=== PATIENT | female | born 1975 | race Caucasian/White ===

== ENCOUNTER → 2019-07-19 | Outpatient (CLI) | payer OTHER ==
--- NOTE | 2019-07-24 15:27 | MR ---
EXAMINATION TYPE: MR brain wo/w con DATE OF EXAM: 07/19/2019 COMPARISON: Prior MRI from outside institution 01/09/2019 HISTORY: Seizures TECHNIQUE: Multiplanar, multisequence images of the brain and brainstem is performed without and with IV contras t, utilizing 6.5 mL intravenous Gadavist . FINDINGS: Diffusion weighted images demonstrate no evidence of a recent infarct or other diffusion ab normality. There is no extra-axial fluid collection or significant white matter signal abnormality. The ventricular system and cisternal spaces are normal in size and appearance. The brain volume is age appropriate. Midline structures demonstrate normal morphology. The craniocervical junction appears within normal limits. Post contrast images demonstrate no abnormal enhancement. The dural venous sinuses appear pa tent. The visualized sinuses are clear and the globes are intact. IMPRESSION: Stable brain MRI, no acute abnormality. No evident metastasis.
== END | disposition home or self-care (01) ==
LOC: RADMRIMAIN 15:52
PROVIDERS: ATTEND Family Medicine
DX: G40.89 Other seizures (principal)
CPT/HCPCS: 70553; A9585

== ENCOUNTER → 2021-05-27 | Outpatient (CLI) | payer OTHER ==
[2021-05-27 14:31] LABS: Basophils # (A) 0.04 X 10*3/uL (0.00-0.10); Basophils % (A) 0.7 %; Eosinophils # (A) 0.07 X 10*3/uL (0.04-0.35); Eosinophils % (A) 1.3 %; HCT 40.4 % (37.2-46.3); HGB 13.1 g/dL (12.0-15.0); Immature Grans, Automated 0.4 %; Lymphocytes # (A) 2.33 X 10*3/uL (0.90-5.00); MCH 32.4 pg (27.0-32.0); MCHC 32.4 g/dL (32.0-37.0); Mean Platelet Volume 10.3 fL (9.5-12.2); Monocytes # (A) 0.32 X 10*3/uL (0.20-1.00); Monocytes % (A) 5.9 %; NRBC Per 100 WBC 0 /100 WBCS (0.0-0.0); Neutrophils # (A) 2.64 X 10*3/uL (1.80-7.70); Neutrophils % (A) 48.7 %; Platelet Count 256 X 10*3/uL (140-440); RBC 4.04 X 10*6/uL (4.10-5.20); RDW 12.4 % (11.5-14.5); WBC 5.42 X 10*3/uL (4.50-10.00)
== END | disposition home or self-care (01) ==
LOC: LABPAT 08:27
PROVIDERS: ATTEND Obstetrics & Gynecology
DX: Z01.812 Encounter for preprocedural laboratory examination (principal); N87.1 Moderate cervical dysplasia
CPT/HCPCS: 36415; 85025

== ENCOUNTER 2021-06-04 06:51 | Day surgery (SDC) | payer OTHER ==
[2021-06-02 14:35] VITALS: BMI 22.8
[~2021-06-04 06:51] MED LIST: DEXAMETHASONE SOD PHOSPHATE 4 MG/ML 1 ML VIAL IV ONE; LACTATED RINGERS 1,000 ML IV SCH; ONDANSETRON 4 MG/2 ML VIAL IVP ONE; Pre Op ABX Message 1 EACH MISC MISCELLANE ONE
[2021-06-04] MEDS ORDERED: HYDROmorphone 0.5 MG/0.5 ML SYRINGE IVP PRN (07:00)
[2021-06-04] MEDS ORDERED: KETOROLAC 15 MG/ML 1 ML VIAL ONE (08:14)
[2021-06-04] MEDS ORDERED: LIDOCAINE 1% INJ 10MG/ML (20 ML MDV) ONE (08:14)
[2021-06-04] MEDS ORDERED: MIDAZOLAM 2 MG/2 ML VIAL ONE (08:14)
[2021-06-04] MEDS ORDERED: fentaNYL (PF) 50 MCG/ML 2 ML AMP ONE (08:14)
[2021-06-04] MEDS ORDERED: PROPOFOL 10 MG/ML 20 ML VIAL IV ONE (08:14)
[2021-06-04] MEDS ORDERED: IODINE/POTASS IOD (LUGOLS) BOTTLE TOPICAL ONE (08:34)
[2021-06-04] MEDS ORDERED: FERRIC SUBSULFATE (MONSELS) JAR TOPICAL ONE (08:44)
[2021-06-04 09:03] VITALS: TEMP 96.9
[2021-06-04] MEDS ORDERED: ONDANSETRON 4 MG/2 ML VIAL IVP PRN (09:15)
[2021-06-04] MEDS ORDERED: KETOROLAC 15 MG/ML 1 ML VIAL IVP PRN (09:15)
[2021-06-04] MEDS ORDERED: IBUPROFEN 600 MG TAB PO PRN (09:15)
[2021-06-04] MEDS ORDERED: SIMETHICONE 80 MG CHEWABLE PO PRN (09:15)
[2021-06-04] MEDS ORDERED: diphenhydrAMINE 50 MG/ML 1 ML VIAL IVP PRN (09:15)
[2021-06-04] MEDS ORDERED: METOCLOPRAMIDE 5 MG/ML 2 ML VIAL IVP PRN (09:15)
[2021-06-04] MEDS ORDERED: LACTATED RINGERS 1,000 ML IV SCH (09:15)
[2021-06-04] MEDS ORDERED: Acetaminophen-Codeine 300-30mg TAB PO PRN ×2 (09:15)
--- NOTE | 2021-06-04 09:22 | P.OP ---
Date of Procedure: 06/04/21 Preoperative Diagnosis: #1. Ectocervical and endocervical RAMAN-2 Postoperative Diagnosis: Same Procedure(s) Performed: #1. Cold knife cervical conization Anesthesia: other (Gen. by facemask) Surgeon: Tomy Toscano Estimated Blood Loss (ml): 20 IV fluids (ml): 400 Urine output (ml): 50 Pathology: other (Cervical cone) Condition: stable Disposition: PACU Operative Findings: Intraoperatively, the cervix was noted to have all of the nonstaining tissue on the posterior lip between approximate 4:00 and 7:00. The cone incorporated all of the nonstaining cervix. The cone was taken to a depth of approximately 2 cm and, from the ectocervical perspective, was approximately 1 x 1 cm. Description of Procedure: The patient was prepped and draped in usual fashion after general anesthesia was administered by the anesthesiologist. The bladder was drained of approximately 50 mL of clear delfino urine. A weighted speculum was placed in the anterior lip of the cervix grasped with a single-tooth tenaculum allowing placement of cervical stay sutures using 0 Vicryl from 10:00 to 8:00 at the cervicovaginal junction and 2:00 to 4:00 the cervicovaginal junction. Each was tied off firmly and then held for traction. The uterus was sounded to approximately 6-7 cm. The cervix was stained with Lugol strong iodine and the entire cervix took up the dye without difficulty except for the posterior lip from approximately 4:00 to 7:00. The sound was deemed unnecessary. An 11 blade scalpel was utilized to begin the cone encompassing the entirety of the ectocervix to include the nonstaining area on the posterior lip. She was taken to a depth of approximately 2 cm or the length of the scalpel blade. The cone was then grasped with an Allis clamp and traction applied allowing it to be amputated at its base and passed for pathological diagnoses. Ball cautery was then utilized to create hemostasis from the base of the cone to the ectocervix. Once hemostasis was reasonably good, Monsel solution was applied. Small points of bleeding were then further made hemostatic with the cautery until hemostasis was deemed adequate. There was minimal ongoing bleeding from the cervix at any site. The margins in all been thoroughly cauterized. The cervical stay sutures were left in place but trimmed short bilaterally in the procedure discontinued. All instrumentation was removed. Estimated blood loss for the case was 20 mL or less. There were no complications. All sponge, instrument, and needle counts were correct. The patient tolerated the procedure well and proceeded to the recovery room in stable condition.
[2021-06-04 09:36] VITALS: RESP 18
[2021-06-04 09:56] VITALS: BP 125/85; PULSE 78
== END 2021-06-04 10:05 | disposition home or self-care (01) ==
LOC: OR 06:51
PROVIDERS: ATTEND Obstetrics & Gynecology
DX: N87.1 Moderate cervical dysplasia (principal); N72 Inflammatory disease of cervix uteri; E78.5 Hyperlipidemia, unspecified; F32.A Depression, unspecified; R56.9 Unspecified convulsions; K21.9 Gastro-esophageal reflux disease without esophagitis; Z85.828 Personal history of other malignant neoplasm of skin; Z85.3 Personal history of malignant neoplasm of breast; Z85.79 Personal history of other malignant neoplasms of lymphoid, hematopoietic and related tissues; Z92.21 Personal history of antineoplastic chemotherapy; Z90.13 Acquired absence of bilateral breasts and nipples; Z98.890 Other specified postprocedural states; Z79.899 Other long term (current) drug therapy; Z80.42 Family history of malignant neoplasm of prostate; Z80.9 Family history of malignant neoplasm, unspecified; Z80.8 Family history of malignant neoplasm of other organs or systems
CPT/HCPCS: 81025; 88307; 57520; J2250; J1100; J2405; J2001; J3010; J1885; J2704; J1170

== ENCOUNTER 2021-10-20 08:14 | Emergency (ER) | payer OTHER ==
[2021-10-20 08:59] VITALS: BP 130/79; PULSE 61; RESP 20; TEMP 98.4
--- NOTE | 2021-10-20 09:15 | ED ---
General Adult HPI - General Chief complaint: Abdominal Pain Stated complaint: Abd pain Time Seen by Provider: 10/20/21 09:03 Source: patient, RN notes reviewed, old records reviewed Mode of arrival: ambulatory Limitations: no limitations - History of Present Illness Initial comments: 46-year-old female presenting for evaluation of lower abdominal pain. Pain is been present for the past one month. She was treated for urinary tract infection at the onset. She does report urinary frequency but she states she drinks a lot of water. No urgency. No dysuria. No fever. No vomiting. Normal bowel movements. She had a colonoscopy 2 months ago which she reports is normal. She has a previous history of breast cancer. - Related Data Home Medications Medication Instructions Recorded Confirmed Anastrozole [Arimidex] 1 mg PO DAILY 06/02/21 06/04/21 Allergies Allergy/AdvReac Type Severity Reaction Status Date / Time No Known Allergies Allergy Verified 10/20/21 08:58 Review of Systems ROS Statement: Those systems with pertinent positive or pertinent negative responses have been documented in the HPI. ROS Other: All systems not noted in ROS Statement are negative. Past Medical History Past Medical History: Cancer, Seizure Disorder Additional Past Medical History / Comment(s): breast CA 2016 Past Surgical History: Breast Surgery Additional Past Surgical History / Comment(s): cervical/ovarian sx Smoking Status: Never smoker Past Alcohol Use History: Occasional Past Drug Use History: None Reported General Exam Limitations: no limitations General appearance: alert, in no apparent distress Head exam: Present: atraumatic, normocephalic Eye exam: Present: normal appearance, PERRL ENT exam: Present: normal exam Neck exam: Present: normal inspection. Absent: tenderness, meningismus Respiratory exam: Present: normal lung sounds bilaterally. Absent: respiratory distress, wheezes Cardiovascular Exam: Present: regular rate, normal rhythm GI/Abdominal exam: Present: soft. Absent: distended, tenderness Extremities exam: Present: normal inspection, normal capillary refill. Absent: pedal edema Neurological exam: Present: alert, oriented X3, CN II-XII intact, normal gait. Absent: motor sensory deficit Skin exam: Present: warm, dry, intact. Absent: cyanosis, diaphoretic Course Vital Signs 10/20/21 08:54 Temperature 98.4 F Pulse Rate 61 Respiratory 20 Rate Blood Pressure 130/79 O2 Sat by Pulse 99 Oximetry Medical Decision Making - Medical Decision Making 46-year-old female with one month of lower abdominal pain no bowel symptoms, no vaginal bleeding, no dysuria. Laboratory testing is unremarkable. I did perform CT imaging at the request of the primary care provider which shows a cystic mass 5 cm x 4.7 cm with a fluid-filled Center at the lower uterine segment and cervical junction. This is off of a preliminary radiology report. The complete report is unavailable due to technical difficulties. Patient is informed of both the mass and a limited radiology report. She will follow-up with her primary care physician regarding the complete interpretation of CT imaging and with her manipulative therapy specialist Dr. Toscano. She is informed to make an appointment as soon as possible regarding this cystic mass. - Lab Data Result diagrams: 10/20/21 09:32 10/20/21 09:32 Lab Results 10/20/21 10/20/21 10/20/21 Range/Units 09:32 09:32 09:32 WBC 5.1 (3.8-10.6) k/uL RBC 4.01 (3.80-5.40) m/uL Hgb 13.0 (11.4-16.0) gm/dL Hct 40.5 (34.0-46.0) % MCV 100.9 H (80.0-100.0) fL MCH 32.4 (25.0-35.0) pg MCHC 32.1 (31.0-37.0) g/dL RDW 12.0 (11.5-15.5) % Plt Count 292 (150-450) k/uL MPV 7.1 Neutrophils % 53 % Lymphocytes % 37 % Monocytes % 5 % Eosinophils % 2 % Basophils % 1 % Neutrophils # 2.7 (1.3-7.7) k/uL Lymphocytes # 1.9 (1.0-4.8) k/uL Monocytes # 0.3 (0-1.0) k/uL Eosinophils # 0.1 (0-0.7) k/uL Basophils # 0.0 (0-0.2) k/uL PT 10.2 (9.0-12.0) sec INR 0.9 (<1.2) APTT 24.7 (22.0-30.0) sec Sodium (137-145) mmol/L Potassium (3.5-5.1) mmol/L Chloride (98-107) mmol/L Carbon Dioxide (22-30) mmol/L Anion Gap mmol/L BUN (7-17) mg/dL Creatinine (0.52-1.04) mg/dL Est GFR (CKD-EPI)AfAm (>60 ml/min/1.73 sqM) Est GFR (CKD-EPI)NonAf (>60 ml/min/1.73 sqM) Glucose (74-99) mg/dL Calcium (8.4-10.2) mg/dL Total Bilirubin (0.2-1.3) mg/dL AST (14-36) U/L ALT (4-34) U/L Alkaline Phosphatase (38-126) U/L Total Protein (6.3-8.2) g/dL Albumin (3.5-5.0) g/dL Lipase (23-300) U/L Urine Color Light Yellow Urine Appearance Cloudy H (Clear) Urine pH 7.0 (5.0-8.0) Ur Specific Alvarado 1.002 (1.001-1.035) Urine Protein Negative (Negative) Urine Glucose (UA) Negative (Negative) Urine Ketones Negative (Negative) Urine Blood Negative (Negative) Urine Nitrite Negative (Negative) Urine Bilirubin Negative (Negative) Urine Urobilinogen <2.0 (<2.0) mg/dL Ur Leukocyte Esterase Negative (Negative) Urine RBC 1 (0-5) /hpf Urine WBC 2 (0-5) /hpf Ur Squamous Epith Cells 8 H (0-4) /hpf Amorphous Sediment Rare H (None) /hpf Urine Bacteria Occasional H (None) /hpf 10/20/21 Range/Units 09:32 WBC (3.8-10.6) k/uL RBC (3.80-5.40) m/uL Hgb (11.4-16.0) gm/dL Hct (34.0-46.0) % MCV (80.0-100.0) fL MCH (25.0-35.0) pg MCHC (31.0-37.0) g/dL RDW (11.5-15.5) % Plt Count (150-450) k/uL MPV Neutrophils % % Lymphocytes % % Monocytes % % Eosinophils % % Basophils % % Neutrophils # (1.3-7.7) k/uL Lymphocytes # (1.0-4.8) k/uL Monocytes # (0-1.0) k/uL Eosinophils # (0-0.7) k/uL Basophils # (0-0.2) k/uL PT (9.0-12.0) sec INR (<1.2) APTT (22.0-30.0) sec Sodium 138 (137-145) mmol/L Potassium 4.5 (3.5-5.1) mmol/L Chloride 103 (98-107) mmol/L Carbon Dioxide 25 (22-30) mmol/L Anion Gap 10 mmol/L BUN 9 (7-17) mg/dL Creatinine 0.77 (0.52-1.04) mg/dL Est GFR (CKD-EPI)AfAm >90 (>60 ml/min/1.73 sqM) Est GFR (CKD-EPI)NonAf >90 (>60 ml/min/1.73 sqM) Glucose 84 (74-99) mg/dL Calcium 10.1 (8.4-10.2) mg/dL Total Bilirubin 0.7 (0.2-1.3) mg/dL AST 28 (14-36) U/L ALT 16 (4-34) U/L Alkaline Phosphatase 68 (38-126) U/L Total Protein 7.3 (6.3-8.2) g/dL Albumin 4.4 (3.5-5.0) g/dL Lipase 152 (23-300) U/L Urine Color Urine Appearance (Clear) Urine pH (5.0-8.0) Ur Specific Alvarado (1.001-1.035) Urine Protein (Negative) Urine Glucose (UA) (Negative) Urine Ketones (Negative) Urine Blood (Negative) Urine Nitrite (Negative) Urine Bilirubin (Negative) Urine Urobilinogen (<2.0) mg/dL Ur Leukocyte Esterase (Negative) Urine RBC (0-5) /hpf Urine WBC (0-5) /hpf Ur Squamous Epith Cells (0-4) /hpf Amorphous Sediment (None) /hpf Urine Bacteria (None) /hpf Disposition Clinical Impression: Uterine mass Disposition: HOME SELF-CARE Condition: Fair Instructions (If sedation given, give patient instructions): Abdominal Pain (ED) Additional Instructions: Please follow up with primary care physician regarding CT imaging please follow up with your unit assistant as soon as possible regarding the cystic mass on your uterus. Is patient prescribed a controlled substance at d/c from ED?: No Referrals: [facility],Clinic [Primary Care Provider] - 1-2 days Tomy Toscano MD [STAFF PHYSICIAN] - 1-2 days Time of Disposition: 11:12
[2021-10-20 09:54] LABS: Basophils % (A) 1 %; Eosinophils # (A) 0.1 k/uL (0-0.7); Eosinophils % (A) 2 %; HCT 40.5 % (34.0-46.0); Lymphocytes # (A) 1.9 k/uL (1.0-4.8); Lymphocytes % (A) 37 %; MCH 32.4 pg (25.0-35.0); MCHC 32.1 g/dL (31.0-37.0); MCV 100.9 fL (80.0-100.0); Mean Platelet Volume 7.1; Monocytes # (A) 0.3 k/uL (0-1.0); Monocytes % (A) 5 %; Neutrophils # (A) 2.7 k/uL (1.3-7.7); Neutrophils % (A) 53 %; Platelet Count 292 k/uL (150-450); RBC 4.01 m/uL (3.80-5.40); WBC 5.1 k/uL (3.8-10.6)
[2021-10-20 09:57] LABS: Amorphous Sediment,Urine Rare /hpf; Appearance,Urine Cloudy (Clear); Bacteria,Urine Occasional /hpf; Bilirubin,Urine Negative (Negative); Blood,Urine Negative (Negative); Color,Urine Light Yellow; Glucose,Urine (UA) Negative (Negative); Ketones,Urine Negative (Negative); Leukocyte Esterase,Urine Negative (Negative); Nitrite,Urine Negative (Negative); Protein,Urine Negative (Negative); RBC,Urine 1 /hpf (0-5); Specific Gravity,Urine 1.002 (1.001-1.035); Squamous Epithelial Cell,Urine 8 /hpf (0-4); Urobilinogen,Urine <2.0 mg/dL (<2.0); WBC,Urine 2 /hpf (0-5)
[2021-10-20 10:23] LABS: ALT 16 U/L (4-34); AST 28 U/L (14-36); African American GFR (CKD) >90 (>60 ml/min/1.73 sqM); Albumin 4.4 g/dL (3.5-5.0); Alkaline Phosphatase 68 U/L (38-126); Anion Gap 10 mmol/L; Blood Urea Nitrogen 9 mg/dL (7-17); Calcium 10.1 mg/dL (8.4-10.2); Carbon Dioxide 25 mmol/L (22-30); Chloride 103 mmol/L (98-107); Glucose 84 mg/dL (74-99); INR 0.9 (<1.2); Lipase 152 U/L (23-300); Non-African American GFR(CKD) >90 (>60 ml/min/1.73 sqM); Partial Thromboplastin Time 24.7 sec (22.0-30.0); Potassium 4.5 mmol/L (3.5-5.1); Prothrombin Time 10.2 sec (9.0-12.0); Sodium 138 mmol/L (137-145); Total Bilirubin 0.7 mg/dL (0.2-1.3); Total Protein 7.3 g/dL (6.3-8.2)
[2021-10-20] MEDS ORDERED: KETOROLAC 15 MG/ML 1 ML VIAL IVP STA (10:39)
--- NOTE | 2021-10-21 23:10 | CT ---
EXAMINATION TYPE: CT abdomen pelvis w con DATE OF EXAM: 10/20/2021 HISTORY: Lower abdominal and pelvic pain for 1.[address] DLP: 625.3mGycm Automated Exposure Control for Dose Reduction was Utilized. CONTRAST: CT scan of the abdomen and pelvis is performed without oral but with IV Contrast, patient injected wi th 50 mL of Isovue 300. COMPARISON: None available at time of dictation FINDINGS: LUNG BASES: No significant abnormality is appreciated. LIVER/GB: Visualized liver heterogeneously hypodense suggesting mild diffuse fatty infiltration. Cont racted gallbladder. No biliary dilatation. PANCREAS: No significant abnormality is seen. SPLEEN: No significant abnormality is seen. ADRENALS: No significant abnormality is seen. KIDNEYS: Symmetric cortical medullary uptake and excretion without hydronephrosis seen bilaterally. BOWEL: Suboptimal evaluation of bowel without enteric contrast. No suspicious small or large bowel di latation UTERUS/ADNEXA: Anteverted uterus. In the central lower uterine segment/upper cervix there is a well-d efined low-density aspect thin-walled cyst measuring 5.0 x 4.7 cm axial image 68 x 4.6 cm craniocauda l dimension sagittal image 54 appears to have some dependent density. Ovaries are symmetric and anabell l in size. No free fluid in the pelvis. Occasional adjacent pelvic phleboliths seen. LYMPH NODES: No greater than 1cm abdominal or pelvic lymph nodes are appreciated. OSSEOUS STRUCTURES: No significant abnormality is seen. OTHER: No significant additional abnormality is seen. IMPRESSION: There is 5.0 cm thin-walled cyst or cystic mass in the lower uterine segment/upper cervix with dependent density. Differential includes cystic neoplasm versus walled off hematoma. Correlate clinically. Advise gynecology referral to further evaluate. Preliminary report provided by on site radiologist.
== END 2021-10-20 11:15 | disposition home or self-care (01) ==
LOC: EC 08:14
DX: N85.8 Other specified noninflammatory disorders of uterus (principal); Z85.3 Personal history of malignant neoplasm of breast
CPT/HCPCS: 36415; 80053; 83690; 85025; 85610; 85730; 81001; 74177; 99284; 96374; J1885; Q9967

== ENCOUNTER → 2021-10-21 | Outpatient (CLI) | payer OTHER | END | disposition home or self-care (01) | LOC: LABWHC1 16:17 | PROVIDERS: ATTEND Obstetrics & Gynecology | DX: N92.5 Other specified irregular menstruation (principal) | CPT/HCPCS: 36415; 84702 ==

== ENCOUNTER → 2021-11-02 | Outpatient (CLI) | payer OTHER ==
[2021-11-02 22:28] LABS: Basophils # (A) 0.03 X 10*3/uL (0.00-0.10); Basophils % (A) 0.5 %; Eosinophils # (A) 0.06 X 10*3/uL (0.04-0.35); HCT 36.2 % (37.2-46.3); HGB 11.9 g/dL (12.0-15.0); Immature Grans, Automated 0.2 %; Lymphocytes # (A) 2.65 X 10*3/uL (0.90-5.00); Lymphocytes % (A) 43.2 %; MCH 33.3 pg (27.0-32.0); MCHC 32.9 g/dL (32.0-37.0); MCV 101.4 fL (80.0-97.0); Monocytes # (A) 0.45 X 10*3/uL (0.20-1.00); Monocytes % (A) 7.3 %; NRBC Per 100 WBC 0 /100 WBCS (0.0-0.0); Neutrophils # (A) 2.94 X 10*3/uL (1.80-7.70); Neutrophils % (A) 47.8 %; Platelet Count 285 X 10*3/uL (140-440); RBC 3.57 X 10*6/uL (4.10-5.20); RDW 12.1 % (11.5-14.5); WBC 6.14 X 10*3/uL (4.50-10.00)
== END | disposition home or self-care (01) ==
LOC: LABPAT 15:35
PROVIDERS: ATTEND Obstetrics & Gynecology
DX: Z01.812 Encounter for preprocedural laboratory examination (principal); N88.2 Stricture and stenosis of cervix uteri
CPT/HCPCS: 85025

== ENCOUNTER 2021-11-09 07:01 | Day surgery (SDC) | payer OTHER ==
[~2021-11-09 07:01] MED LIST changes: +MORPHINE SULFATE 4 MG/ML SYRINGE IV PRN
[2021-11-09] MEDS ORDERED: LACTATED RINGERS 1,000 ML IV ONE (07:27)
[2021-11-09] MEDS ORDERED: MIDAZOLAM 2 MG/2 ML VIAL IV ONE (07:56)
[2021-11-09] MEDS ORDERED: KETOROLAC 15 MG/ML 1 ML VIAL ONE (08:27)
[2021-11-09] MEDS ORDERED: PROPOFOL 10 MG/ML 20 ML VIAL IV ONE (08:27)
[2021-11-09] MEDS ORDERED: LIDOCAINE 2% INJ 20 MG/ML (2 ML VIAL) ONE (08:27)
[2021-11-09] MEDS ORDERED: fentaNYL (PF) 50 MCG/ML 2 ML AMP ONE (08:27)
[2021-11-09] MEDS ORDERED: SORBITOL 3% IRRIG 3,000 ML BAG IRRIGATION ONE (08:44)
[2021-11-09] MEDS ORDERED: KETOROLAC 15 MG/ML 1 ML VIAL IVP PRN (09:03)
[2021-11-09] MEDS ORDERED: ONDANSETRON 4 MG/2 ML VIAL IVP PRN (09:03)
[2021-11-09] MEDS ORDERED: IBUPROFEN 600 MG TAB PO PRN (09:03)
[2021-11-09] MEDS ORDERED: diphenhydrAMINE 50 MG/ML 1 ML VIAL IVP PRN (09:03)
[2021-11-09] MEDS ORDERED: Acetaminophen-Codeine 300-30mg TAB PO PRN ×2 (09:03)
[2021-11-09] MEDS ORDERED: SIMETHICONE 80 MG CHEWABLE PO PRN (09:03)
[2021-11-09] MEDS ORDERED: METOCLOPRAMIDE 5 MG/ML 2 ML VIAL IVP PRN (09:03)
--- NOTE | 2021-11-09 09:12 | P.OP ---
Date of Procedure: 11/09/21 Preoperative Diagnosis: #1. Intrauterine mass #2. Cervical stenosis Postoperative Diagnosis: Same Procedure(s) Performed: #1. Diagnostic hysteroscopy #2. Dilation and curettage Anesthesia: other (Gen. by LMA) Surgeon: Tomy Toscano Estimated Blood Loss (ml): 5 IV fluids (ml): 300 Urine output (ml): 150 Pathology: other (Endometrial and endocervical curettings) Condition: stable Disposition: PACU Operative Findings: Preoperative pelvic examination demonstrated a 4 week midplane mobile normal shaped uterus with normal adnexa bilaterally. Examination of the cervix demonstrated significant cervical stenosis secondary to previous cone surgery. I was able to open the membranous scarring with a small dilator which time blood emerged. Using the hysteroscope, the endometrial cavity appeared to be relatively atrophic. As we chitra back into the cervical canal, there was some slightly shaggy tissue circumferentially. No discrete mass was noted throughout the entire hysteroscopy. Small to moderate amount of tissue was recovered with curettage of both the endometrium and endocervix with no discrete mass being noted. The typical gritty texture was encountered throughout. The patient is a potential candidate for vaginal hysterectomy should become necessary. Description of Procedure: The patient was prepped and draped in usual fashion after general anesthesia was administered by the anesthesiologist. A weighted speculum was placed and the bladder was drained of approximately 150 mL of clear delfino urine. The anterior lip of the cervix was grasped with a single-tooth tenaculum and the cervix is noted to be moderately scarred secondary to previous colon surgery with a membranous stenosis of the external os noted. A sound was unable to be passed and was replaced the small dilator which was able to penetrate the small opening in the center of the stenotic area. After passing the first dilator, some blood emerged from the cervix which was somewhat congealed. Serial dilation was carried out to admit the diagnostic hysteroscope which was placed in the fundus and the cavity distended with sorbitol. There were no discrete findings in the intrauterine cavity. As we gradually retreated through the cervix there was some lumpier shaggy tissue noted circumferentially but no discrete mass was noted. The scope was then set aside in favor of a small sharp curette which was utilized to thoroughly and circumferentially curet the endometrial cavities contents onto a Telfa in the vagina. The endocervix was similarly curetted onto the same Telfa. A small to medium amount of tissue was returned with no discrete masses noted. There was no ongoing bleeding from the cervix. The tenaculum was released and there was no bleeding from the tenaculum sites. The patient is a potential candidate for vaginal hysterectomy though borderline. My suspicion, given the findings by ultrasound and the findings at surgery was that the intrauterine or intracervical mass may have been an organized blood clot.
[2021-11-09] MEDS ORDERED: LACTATED RINGERS 1,000 ML IV SCH (09:15)
[2021-11-09 09:18] VITALS: TEMP 97
[2021-11-09 09:21] VITALS: RESP 16
[2021-11-09 10:23] VITALS: BP 117/78; PULSE 58
== END 2021-11-09 10:50 | disposition home or self-care (01) ==
LOC: OR 07:01
PROVIDERS: ATTEND Obstetrics & Gynecology
DX: N85.00 Endometrial hyperplasia, unspecified (principal); N85.8 Other specified noninflammatory disorders of uterus; F32.A Depression, unspecified; Z86.69 Personal history of other diseases of the nervous system and sense organs; Z79.899 Other long term (current) drug therapy
CPT/HCPCS: 58558; 81025; 88305; J2250; J1100; J2405; J3010; J1885; J2704; J2001